=== PATIENT | female | born 1965 | race American Indian/Alaskan Native ===

== ENCOUNTER 2016-11-05 04:40 | Emergency (ER) | payer MEDICAID ==
--- NOTE | 2016-11-05 08:39 | Emergency Department Report ---
ED General Adult HPI - General Chief complaint: Pain General Stated complaint: SEVERE PAIN Time Seen by Provider: 11/05/16 07:57 Source: patient Mode of arrival: Ambulatory Limitations: No Limitations - History of Present Illness Initial comments: This is a 51-year-old female that presents with generalized pain throughout the body that going on for many years. Patient stated has history of lupus and fibromyalgia. She is currently seeing a infectious disease physician. Patient stated the infectious disease physician is out of town and will be back October 20. Patient stated she takes Percocet 5 mg for her pain consistently. But has ran out. Patient pain level is a 10 out of 10. No signs of any distress. Denies any chest pain shortness of breath polyuria dysuria numbness or tingling sensations. Denies any head trauma. Patient does not seem toxic or ill appearance. Patient also stated that she wants a refill for her yeast infection medication because she is currently taking some medication that the infectious disease physician stated may have an impacted in her vaginal area. Patient denies any current symptoms of vaginosis or symptoms of these infection. MD Complaint: generalized pain -: year(s) Radiation: non-radiation Severity scale (0 -10): 10 Quality: burning, aching, crushing, constant Consistency: constant Improves with: other (Percocet 5 mg) Associated Symptoms: denies: confusion, chest pain, cough, diaphoresis, fever/ chills, headaches, loss of appetite, malaise, nausea/vomiting, rash, seizure, shortness of breath, syncope, weakness Treatments Prior to Arrival: none - Related Data Home Medications Medication Instructions Recorded Confirmed Last Taken Lisinopril/Hydrochlorothiazide 1 tab PO QDAY 03/26/13 05/01/14 05/01/14 [Zestoretic 20-12.5 mg] clonazePAM [Clonazepam] 2 mg PO 4XD 05/01/14 05/01/14 05/01/14 Previous Rx's Medication Instructions Recorded Last Taken Type HYDROcodone/APAP 7.5-325 [[place] 1 each PO Q6H #40 tablet 03/01/15 Unknown Rx 7.5/325] HYDROcodone/APAP 10-325 [[place] 1 each PO Q6HR PRN #14 tablet 06/06/16 Unknown Rx 10-325 mg TAB] Prednisone [predniSONE 10 mg 10 mg PO .TAPER #1 tab.ds.pk 06/12/16 Unknown Rx (6-Day Pack, 21 Tabs)] oxyCODONE /ACETAMINOPHEN [Percocet 1 tab PO Q6HR PRN #15 tablet 06/24/16 Unknown Rx 5/325] methylPREDNISolone [Medrol Dose 4 mg PO DAILY #1 tab.ds.pk 07/11/16 Unknown Rx Miguelangel] oxyCODONE /ACETAMINOPHEN [Percocet 1 tab PO Q6HR PRN #16 tablet 07/11/16 Unknown Rx 5/325 mg] oxyCODONE /ACETAMINOPHEN [Percocet 1 tab PO Q6HR PRN 14 Days 11/05/16 Unknown Rx 5/325] Allergies Allergy/AdvReac Type Severity Reaction Status Date / Time ibuprofen [From Motrin] Allergy Rash Verified 03/01/15 12:46 ketorolac tromethamine Allergy Rash Verified 03/01/15 12:46 [From Toradol] NSAIDS (Non-Steroidal Allergy Rash Verified 03/01/15 12:46 Anti-Inflamma Penicillins Allergy Rash Verified 06/06/16 20:55 tramadol HCl [From Ultram] Allergy Rash Verified 03/01/15 12:46 ED Review of Systems ROS: Stated complaint: SEVERE PAIN Other details as noted in HPI Comment: All other systems reviewed and negative Constitutional: denies: chills, fever Eyes: denies: eye pain, eye discharge, vision change ENT: denies: ear pain, throat pain Respiratory: denies: cough, shortness of breath, wheezing Cardiovascular: denies: chest pain, palpitations Endocrine: no symptoms reported Gastrointestinal: denies: abdominal pain, nausea, diarrhea Genitourinary: denies: urgency, dysuria, discharge Musculoskeletal: denies: back pain, joint swelling, arthralgia Skin: denies: rash, lesions Neurological: denies: headache, weakness, paresthesias Psychiatric: denies: anxiety, depression Hematological/Lymphatic: denies: easy bleeding, easy bruising ED Past Medical Hx - Past Medical History Previous Medical History?: Yes Hx Hypertension: Yes Hx Arthritis: Yes Hx Psychiatric Treatment: Yes (anxiety) Additional medical history: back problems / fibromyalgia. LUPUS - Surgical History Past Surgical History?: Yes Hx Appendectomy: No Additional Surgical History: ulcer surgery. - Social History Smoking Status: Never Smoker Substance Use Type: None - Medications Home Medications: Home Medications Medication Instructions Recorded Confirmed Last Taken Type Lisinopril/Hydrochlorothiazide 1 tab PO QDAY 03/26/13 05/01/14 05/01/14 History [Zestoretic 20-12.5 mg] clonazePAM [Clonazepam] 2 mg PO 4XD 05/01/14 05/01/14 05/01/14 History HYDROcodone/APAP 7.5-325 [[place] 1 each PO Q6H #40 tablet 03/01/15 Unknown Rx 7.5/325] HYDROcodone/APAP 10-325 [[place] 1 each PO Q6HR PRN #14 tablet 06/06/16 Unknown Rx 10-325 mg TAB] Prednisone [predniSONE 10 mg 10 mg PO .TAPER #1 tab.ds.pk 06/12/16 Unknown Rx (6-Day Pack, 21 Tabs)] oxyCODONE /ACETAMINOPHEN [Percocet 1 tab PO Q6HR PRN #15 tablet 06/24/16 Unknown Rx 5/325] methylPREDNISolone [Medrol Dose 4 mg PO DAILY #1 tab.ds.pk 07/11/16 Unknown Rx Miguelangel] oxyCODONE /ACETAMINOPHEN [Percocet 1 tab PO Q6HR PRN #16 tablet 07/11/16 Unknown Rx 5/325 mg] oxyCODONE /ACETAMINOPHEN [Percocet 1 tab PO Q6HR PRN 14 Days 11/05/16 Unknown Rx 5/325] ED Physical Exam - General Limitations: No Limitations General appearance: alert, in no apparent distress - Head Head exam: Present: atraumatic, normocephalic - Eye Eye exam: Present: normal appearance - ENT ENT exam: Present: mucous membranes moist - Neck Neck exam: Present: normal inspection - Respiratory Respiratory exam: Present: normal lung sounds bilaterally. Absent: respiratory distress - Cardiovascular Cardiovascular Exam: Present: regular rate, normal rhythm. Absent: systolic murmur, diastolic murmur, rubs, gallop - GI/Abdominal GI/Abdominal exam: Present: soft, normal bowel sounds - Extremities Exam Extremities exam: Present: normal inspection - Back Exam Back exam: Present: normal inspection - Neurological Exam Neurological exam: Present: alert, oriented X3 - Psychiatric Psychiatric exam: Present: normal affect, normal mood - Skin Skin exam: Present: warm, dry, intact, normal color. Absent: rash ED Course Vital Signs 11/05/16 04:44 Temperature 98 F Pulse Rate 88 Respiratory 18 Rate Blood Pressure 156/107 O2 Sat by Pulse 100 Oximetry Patient stated is severely hypertensive at 210/150. 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 Patient stated that this blood pressure is normal for her. ED Medical Decision Making - Medical Decision Making Ed course: This is a 51-year-old female that presents with generalized pain. 1- patient did not seem toxic or ill appearance. No signs and distress noted. 2- she currently states that she takes Percocet 5 mg but ran out for her lupus and fibromyalgia. 3- I prescribed Percocet 5 mg until she sees a infectious disease physician. 4- at the time of discharge the patient denies seem toxic or ill appearance. No signs and distress noted. 5- patient stated has an appointment already with her infectious disease physician October 20. 6- I instructed the patient not to use any heavy machinery while taking prescribed medication. 7- patient stated takes Percocet at home even though has and Ultram allergie. ( rash) Critical care attestation.: If time is entered above; I have spent that time in minutes in the direct care of this critically ill patient, excluding procedure time. ED Disposition Clinical Impression: Generalized pain Disposition: DISCHARGED TO HOME OR SELFCARE Is pt being admited?: No Does the pt Need Aspirin: No Condition: Stable Instructions: Oxycodone/Acetaminophen (By mouth) Additional Instructions: Please follow-up with your primary care doctor in 3-5 days. Please follow-up with the infectious disease physician JOI Do not operate heavy machinery while taking Percocet. Prescriptions: oxyCODONE /ACETAMINOPHEN [Percocet 5/325] 1 tab PO Q6HR PRN 14 Days PRN Reason: Pain Referrals: FRANSICO AGUIAR MD [Primary Care Provider] - 3-5 Days Forms: Accompanied Note
[2016-11-05 09:40] VITALS: BP 148/96
== END 2016-11-05 08:43 | disposition home or self-care (01) ==
LOC: ED 04:40
DX: M79.1 Myalgia (principal); I10 Essential (primary) hypertension; M19.90 Unspecified osteoarthritis, unspecified site; F41.9 Anxiety disorder, unspecified; Z88.0 Allergy status to penicillin; Z88.6 Allergy status to analgesic agent; Z88.8 Allergy status to other drugs, medicaments and biological substances
CPT/HCPCS: 99282

== ENCOUNTER 2016-11-30 02:46 | Emergency (ER) | payer MEDICAID ==
[2016-11-30 03:22] VITALS: BP 161/98
--- NOTE | 2016-11-30 10:49 | Emergency Department Report ---
ED General Adult HPI - General Chief complaint: Pain General Stated complaint: BODY PAIN Time Seen by Provider: 11/30/16 10:29 Source: patient, EMS Mode of arrival: Ambulatory Limitations: No Limitations - History of Present Illness Initial comments: 51-year-old female with history of fibromyalgia And lupus presents with body aches that are triggered by stress. Patient states that she is currently evicted out of her home and cannot get access to her medication. Denies fever, chest pain, headache, shortness of breath - Related Data Home Medications Medication Instructions Recorded Confirmed Last Taken Lisinopril/Hydrochlorothiazide 1 tab PO QDAY 03/26/13 05/01/14 05/01/14 [Zestoretic 20-12.5 mg] clonazePAM [Clonazepam] 2 mg PO 4XD 05/01/14 05/01/14 05/01/14 Previous Rx's Medication Instructions Recorded Last Taken Type HYDROcodone/APAP 7.5-325 [[place] 1 each PO Q6H #40 tablet 03/01/15 Unknown Rx 7.5/325] HYDROcodone/APAP 10-325 [[place] 1 each PO Q6HR PRN #14 tablet 06/06/16 Unknown Rx 10-325 mg TAB] Prednisone [predniSONE 10 mg 10 mg PO .TAPER #1 tab.ds.pk 06/12/16 Unknown Rx (6-Day Pack, 21 Tabs)] oxyCODONE /ACETAMINOPHEN [Percocet 1 tab PO Q6HR PRN #15 tablet 06/24/16 Unknown Rx 5/325] methylPREDNISolone [Medrol Dose 4 mg PO DAILY #1 tab.ds.pk 07/11/16 Unknown Rx Miguelangel] oxyCODONE /ACETAMINOPHEN [Percocet 1 tab PO Q6HR PRN #16 tablet 07/11/16 Unknown Rx 5/325 mg] oxyCODONE /ACETAMINOPHEN [Percocet 1 tab PO Q6HR PRN 14 Days 11/05/16 Unknown Rx 5/325] Oxycodone HCl [Oxaydo] 7.5 mg PO Q8H #10 tablet.orl 11/30/16 Unknown Rx methylPREDNISolone [Medrol] 4 mg PO DAILY #1 tab.ds.pk 11/30/16 Unknown Rx Allergies Allergy/AdvReac Type Severity Reaction Status Date / Time ibuprofen [From Motrin] Allergy Rash Verified 03/01/15 12:46 ketorolac tromethamine Allergy Rash Verified 03/01/15 12:46 [From Toradol] morphine Allergy Rash Verified 11/30/16 03:23 NSAIDS (Non-Steroidal Allergy Rash Verified 03/01/15 12:46 Anti-Inflamma Penicillins Allergy Rash Verified 06/06/16 20:55 tramadol HCl [From Ultram] Allergy Rash Verified 03/01/15 12:46 ED Review of Systems ROS: Stated complaint: BODY PAIN Other details as noted in HPI Constitutional: denies: chills, fever Eyes: denies: eye pain, eye discharge, vision change ENT: denies: ear pain, throat pain Respiratory: denies: cough, shortness of breath, wheezing Cardiovascular: denies: chest pain, palpitations Endocrine: no symptoms reported Gastrointestinal: denies: abdominal pain, nausea, diarrhea Genitourinary: denies: urgency, dysuria, discharge Musculoskeletal: denies: back pain, joint swelling, arthralgia Skin: denies: rash, lesions Neurological: denies: headache, weakness, paresthesias Psychiatric: denies: anxiety, depression Hematological/Lymphatic: denies: easy bleeding, easy bruising ED Past Medical Hx - Past Medical History Previous Medical History?: Yes Hx Hypertension: Yes Hx Arthritis: Yes Hx Psychiatric Treatment: Yes (anxiety) Additional medical history: back problems / fibromyalgia. LUPUS. pud - Surgical History Past Surgical History?: Yes Hx Appendectomy: No Additional Surgical History: c section x1 - Social History Smoking Status: Never Smoker Substance Use Type: None - Medications Home Medications: Home Medications Medication Instructions Recorded Confirmed Last Taken Type Lisinopril/Hydrochlorothiazide 1 tab PO QDAY 03/26/13 05/01/14 05/01/14 History [Zestoretic 20-12.5 mg] clonazePAM [Clonazepam] 2 mg PO 4XD 05/01/14 05/01/14 05/01/14 History HYDROcodone/APAP 7.5-325 [[place] 1 each PO Q6H #40 tablet 03/01/15 Unknown Rx 7.5/325] HYDROcodone/APAP 10-325 [[place] 1 each PO Q6HR PRN #14 tablet 06/06/16 Unknown Rx 10-325 mg TAB] Prednisone [predniSONE 10 mg 10 mg PO .TAPER #1 tab.ds.pk 06/12/16 Unknown Rx (6-Day Pack, 21 Tabs)] oxyCODONE /ACETAMINOPHEN [Percocet 1 tab PO Q6HR PRN #15 tablet 06/24/16 Unknown Rx 5/325] methylPREDNISolone [Medrol Dose 4 mg PO DAILY #1 tab.ds.pk 07/11/16 Unknown Rx Miguelangel] oxyCODONE /ACETAMINOPHEN [Percocet 1 tab PO Q6HR PRN #16 tablet 07/11/16 Unknown Rx 5/325 mg] oxyCODONE /ACETAMINOPHEN [Percocet 1 tab PO Q6HR PRN 14 Days 11/05/16 Unknown Rx 5/325] Oxycodone HCl [Oxaydo] 7.5 mg PO Q8H #10 tablet.orl 11/30/16 Unknown Rx methylPREDNISolone [Medrol] 4 mg PO DAILY #1 tab.ds.pk 11/30/16 Unknown Rx ED Physical Exam - General Limitations: No Limitations General appearance: alert, in no apparent distress - Head Head exam: Present: atraumatic, normocephalic - Eye Eye exam: Present: normal appearance - ENT ENT exam: Present: mucous membranes moist - Neck Neck exam: Present: normal inspection - Respiratory Respiratory exam: Present: normal lung sounds bilaterally. Absent: respiratory distress - Cardiovascular Cardiovascular Exam: Present: regular rate, normal rhythm. Absent: systolic murmur, diastolic murmur, rubs, gallop - GI/Abdominal GI/Abdominal exam: Present: soft, normal bowel sounds - Extremities Exam Extremities exam: Present: normal inspection - Back Exam Back exam: Present: normal inspection - Neurological Exam Neurological exam: Present: alert, oriented X3 - Psychiatric Psychiatric exam: Present: normal affect, normal mood - Skin Skin exam: Present: warm, dry, intact, normal color. Absent: rash ED Course Vital Signs 11/30/16 03:17 Temperature 98.8 F Pulse Rate 81 Respiratory 18 Rate Blood Pressure 161/98 O2 Sat by Pulse 100 Oximetry ED Medical Decision Making - Lab Data Vital Signs 11/30/16 03:17 Temperature 98.8 F Pulse Rate 81 Respiratory 18 Rate Blood Pressure 161/98 O2 Sat by Pulse 100 Oximetry - Medical Decision Making patient resting comfortably at this time. will refill medication. Critical care attestation.: If time is entered above; I have spent that time in minutes in the direct care of this critically ill patient, excluding procedure time. ED Disposition Clinical Impression: Fibromyalgia muscle pain, Lupus Disposition: DISCHARGED TO HOME OR SELFCARE Is pt being admited?: No Does the pt Need Aspirin: No Condition: Good Instructions: Opioid Pain Management (ED) Prescriptions: methylPREDNISolone [Medrol] 4 mg PO DAILY #1 tab.ds.pk Oxycodone HCl [Oxaydo] 7.5 mg PO Q8H #10 tablet.orl Referrals: PRIMARY CARE, [Primary Care Provider] - 3-5 Days Time of Disposition: 10:49
== END 2016-11-30 11:34 | disposition home or self-care (01) ==
LOC: ED 02:46
DX: M79.1 Myalgia (principal); L93.0 Discoid lupus erythematosus; I10 Essential (primary) hypertension; F41.9 Anxiety disorder, unspecified
CPT/HCPCS: 96372; 99283; J2930

== ENCOUNTER 2017-01-19 03:51 | Emergency (ER) | payer MEDICAID ==
[2017-01-19 04:36] VITALS: BP 172/107
[2017-01-19 05:29] LABS: Hemoglobin 10.1 gm/dl (10.1-14.3); Mean Corpuscular HGB Conc 32 % (30-34); Mean Corpuscular Volume 74 fl (79-97); Platelet Count 398 K/mm3 (140-440); Red Cell Distribution Width 15.3 % (13.2-15.2); White Blood Count 7.9 K/mm3 (4.5-11.0)
[2017-01-19 05:38] LABS: Mean Corpuscular Hemoglobin 24 pg (28-32)
[2017-01-19 05:55] LABS: Blood Urea Nitrogen 27 mg/dL (7-17); Calcium 9.6 mg/dL (8.4-10.2); Carbon Dioxide 25 mmol/L (22-30); Glucose 133 mg/dL (65-100)
[2017-01-19 05:56] LABS: Anion Gap 21 mmol/L; Chloride 100.9 mmol/L (98-107); Potassium 3.8 mmol/L (3.6-5.0); Sodium 143 mmol/L (137-145)
[2017-01-19 06:23] LABS: Bilirubin,Urine NEG (Negative); Blood,Urine NEG (Negative); Ketones,Urine NEG (Negative); Leukocyte Esterase,Urine NEG (Negative); Mucus,Urine FEW /HPF; Nitrite,Urine NEG (Negative); Urobilinogen,Urine < 2.0 mg/dL (<2.0)
[2017-01-19] MEDS ORDERED: DILAUDID IM ONE (07:38)
--- NOTE | 2017-01-19 07:48 | Emergency Department Report ---
ED General Adult HPI - General Chief complaint: Pain General Stated complaint: BODY PAIN Time Seen by Provider: 01/19/17 07:18 Source: patient, EMS Mode of arrival: Wheelchair Limitations: No Limitations - History of Present Illness -: Gradual Location: head, face, chest, back, abdomen, upper extremity, lower extremity Radiation: non-radiation Severity scale (0 -10): 2 Quality: aching, crushing, sharp Consistency: constant Improves with: none Worsens with: none Associated Symptoms: denies: confusion, chest pain, cough, diaphoresis, fever/ chills, headaches, loss of appetite, malaise, nausea/vomiting, rash, seizure, shortness of breath, syncope Treatments Prior to Arrival: none - Related Data Home Medications Medication Instructions Recorded Confirmed Last Taken Lisinopril/Hydrochlorothiazide 1 tab PO QDAY 03/26/13 05/01/14 05/01/14 [Zestoretic 20-12.5 mg] clonazePAM [Clonazepam] 2 mg PO 4XD 05/01/14 05/01/14 05/01/14 Previous Rx's Medication Instructions Recorded Last Taken Type HYDROcodone/APAP 7.5-325 [[place] 1 each PO Q6H #40 tablet 03/01/15 Unknown Rx 7.5/325] HYDROcodone/APAP 10-325 [[place] 1 each PO Q6HR PRN #14 tablet 06/06/16 Unknown Rx 10-325 mg TAB] Prednisone [predniSONE 10 mg 10 mg PO .TAPER #1 tab.ds.pk 06/12/16 Unknown Rx (6-Day Pack, 21 Tabs)] methylPREDNISolone [Medrol Dose 4 mg PO DAILY #1 tab.ds.pk 07/11/16 Unknown Rx Miguelangel] oxyCODONE /ACETAMINOPHEN [Percocet 1 tab PO Q6HR PRN #16 tablet 07/11/16 Unknown Rx 5/325 mg] oxyCODONE /ACETAMINOPHEN [Percocet 1 tab PO Q6HR PRN 14 Days 11/05/16 Unknown Rx 5/325] Oxycodone HCl [Oxaydo] 7.5 mg PO Q8H #10 tablet.orl 11/30/16 Unknown Rx Oxycodone HCl/Acetaminophen 1 each PO Q6HR PRN #10 tablet 11/30/16 Unknown Rx [Percocet 7.5/325 mg] methylPREDNISolone [Medrol] 4 mg PO DAILY #1 tab.ds.pk 11/30/16 Unknown Rx oxyCODONE /ACETAMINOPHEN [Percocet 1 tab PO BID PRN #12 tablet 01/19/17 Unknown Rx 5/325 mg] Allergies Allergy/AdvReac Type Severity Reaction Status Date / Time ibuprofen [From Motrin] Allergy Rash Verified 03/01/15 12:46 ketorolac tromethamine Allergy Rash Verified 03/01/15 12:46 [From Toradol] morphine Allergy Rash Verified 11/30/16 03:23 NSAIDS (Non-Steroidal Allergy Rash Verified 03/01/15 12:46 Anti-Inflamma Penicillins Allergy Rash Verified 06/06/16 20:55 tramadol HCl [From Ultram] Allergy Rash Verified 03/01/15 12:46 ED Review of Systems ROS: Stated complaint: BODY PAIN Other details as noted in HPI Comment: All other systems reviewed and negative ED Past Medical Hx - Past Medical History Previous Medical History?: Yes Hx Hypertension: Yes Hx Arthritis: Yes Hx Psychiatric Treatment: Yes (anxiety) Additional medical history: back problems / fibromyalgia. LUPUS. pud - Surgical History Hx Appendectomy: No Additional Surgical History: c section x1 - Social History Smoking Status: Never Smoker - Medications Home Medications: Home Medications Medication Instructions Recorded Confirmed Last Taken Type Lisinopril/Hydrochlorothiazide 1 tab PO QDAY 03/26/13 05/01/14 05/01/14 History [Zestoretic 20-12.5 mg] clonazePAM [Clonazepam] 2 mg PO 4XD 05/01/14 05/01/14 05/01/14 History HYDROcodone/APAP 7.5-325 [[place] 1 each PO Q6H #40 tablet 03/01/15 Unknown Rx 7.5/325] HYDROcodone/APAP 10-325 [[place] 1 each PO Q6HR PRN #14 tablet 06/06/16 Unknown Rx 10-325 mg TAB] Prednisone [predniSONE 10 mg 10 mg PO .TAPER #1 tab.ds.pk 06/12/16 Unknown Rx (6-Day Pack, 21 Tabs)] methylPREDNISolone [Medrol Dose 4 mg PO DAILY #1 tab.ds.pk 07/11/16 Unknown Rx Miguelangel] oxyCODONE /ACETAMINOPHEN [Percocet 1 tab PO Q6HR PRN #16 tablet 07/11/16 Unknown Rx 5/325 mg] oxyCODONE /ACETAMINOPHEN [Percocet 1 tab PO Q6HR PRN 14 Days 11/05/16 Unknown Rx 5/325] Oxycodone HCl [Oxaydo] 7.5 mg PO Q8H #10 tablet.orl 11/30/16 Unknown Rx Oxycodone HCl/Acetaminophen 1 each PO Q6HR PRN #10 tablet 11/30/16 Unknown Rx [Percocet 7.5/325 mg] methylPREDNISolone [Medrol] 4 mg PO DAILY #1 tab.ds.pk 11/30/16 Unknown Rx oxyCODONE /ACETAMINOPHEN [Percocet 1 tab PO BID PRN #12 tablet 01/19/17 Unknown Rx 5/325 mg] ED Physical Exam - General Limitations: No Limitations General appearance: alert, in distress (in pain) - Head Head exam: Present: atraumatic, normocephalic - Eye Eye exam: Present: normal appearance - ENT ENT exam: Present: normal exam, normal orophraynx, mucous membranes moist - Neck Neck exam: Present: normal inspection - Respiratory Respiratory exam: Present: normal lung sounds bilaterally. Absent: respiratory distress - Cardiovascular Cardiovascular Exam: Present: regular rate, normal rhythm. Absent: systolic murmur, diastolic murmur, rubs, gallop - GI/Abdominal GI/Abdominal exam: Present: soft, normal bowel sounds - Extremities Exam Extremities exam: Present: normal inspection - Back Exam Back exam: Present: normal inspection - Neurological Exam Neurological exam: Present: alert, oriented X3 - Psychiatric Psychiatric exam: Present: normal affect, normal mood - Skin Skin exam: Present: warm, dry, intact, normal color. Absent: rash ED Course Vital Signs 01/19/17 04:28 Temperature 97.8 F Pulse Rate 77 Respiratory 20 Rate Blood Pressure 172/107 O2 Sat by Pulse 100 Oximetry ED Medical Decision Making - Lab Data Result diagrams: 01/19/17 04:57 01/19/17 04:57 - Medical Decision Making patient doing well, she has an appointment with pain specialist next week, told her i could only give her 12 pills with no refill, she understands and will follow up Critical care attestation.: If time is entered above; I have spent that time in minutes in the direct care of this critically ill patient, excluding procedure time. ED Disposition Clinical Impression: Lupus Disposition: DC-01 TO HOME OR SELFCARE Is pt being admited?: No Does the pt Need Aspirin: No Condition: Good Prescriptions: oxyCODONE /ACETAMINOPHEN [Percocet 5/325 mg] 1 tab PO BID PRN #12 tablet PRN Reason: Pain Referrals: PRIMARY CARE, [Primary Care Provider] - 3-5 Days Time of Disposition: 07:48
== END 2017-01-19 08:29 | disposition home or self-care (01) ==
LOC: ED 03:51
DX: M32.9 Systemic lupus erythematosus, unspecified (principal); I10 Essential (primary) hypertension; M19.90 Unspecified osteoarthritis, unspecified site; F41.9 Anxiety disorder, unspecified; Z88.6 Allergy status to analgesic agent; Z88.0 Allergy status to penicillin; Z88.8 Allergy status to other drugs, medicaments and biological substances
CPT/HCPCS: 36415; 80048; 81001; 85027; 96372; 99284; J1170

== ENCOUNTER 2017-02-03 05:30 | Emergency (ER) | payer MEDICAID ==
[2017-02-03 05:43] VITALS: BP 138/102
[2017-02-03 06:19] LABS: Bacteria,Urine 1+ /HPF (Negative); Bilirubin,Urine NEG (Negative); Blood,Urine NEG (Negative); Ketones,Urine NEG (Negative); Leukocyte Esterase,Urine NEG (Negative); Mucus,Urine FEW /HPF; Nitrite,Urine NEG (Negative); Protein,Urine <15 mg/dL mg/dL (Negative); Urobilinogen,Urine < 2.0 mg/dL (<2.0)
[2017-02-03 06:23] LABS: Basophils % (Auto) 1.2 % (0.0-1.8); Eosinophils % (Auto) 1.1 % (0.0-4.3); Hematocrit 30.8 % (30.3-42.9); Hemoglobin 9.9 gm/dl (10.1-14.3); Mean Corpuscular HGB Conc 32 % (30-34); Mean Corpuscular Volume 73 fl (79-97); Platelet Count 357 K/mm3 (140-440); Red Blood Count 4.21 M/mm3 (3.65-5.03); Red Cell Distribution Width 14.6 % (13.2-15.2); White Blood Count 7.6 K/mm3 (4.5-11.0)
[2017-02-03 06:25] LABS: Mean Corpuscular Hemoglobin 23 pg (28-32)
[2017-02-03 06:35] LABS: Alanine Aminotransferase 9 units/L (7-56); Albumin 4.3 g/dL (3.9-5); Albumin/Globulin Ratio 1.2 %; Alkaline Phosphatase 90 units/L (35-129); Anion Gap 19 mmol/L; BUN/Creatinine Ratio 27.77; Bilirubin,Total < 0.20 mg/dL (0.1-1.2); Blood Urea Nitrogen 25 mg/dL (7-17); Calcium 9.5 mg/dL (8.4-10.2); Carbon Dioxide 25 mmol/L (22-30); Chloride 101.5 mmol/L (98-107); Glucose 135 mg/dL (65-100); Lipase 22 units/L (13-60); Potassium 3.7 mmol/L (3.6-5.0); Sodium 142 mmol/L (137-145)
[2017-02-03] MEDS ORDERED: TORADOL IM ONE (07:58)
[2017-02-03] MEDS ORDERED: TYLENOL PO ONE (08:01)
--- NOTE | 2017-02-03 08:07 | Emergency Department Report ---
ED General Adult HPI - General Chief complaint: Pain General Stated complaint: LUPUS Time Seen by Provider: 02/03/17 07:44 Source: patient, EMS Mode of arrival: Ambulatory Limitations: No Limitations - History of Present Illness Initial comments: This is a 52-year-old female that presents that presents to ED c/o of general body aches. Patient stated she has hx of lupus and fibromyalgia and has these flare ups from time to time. Patient stated is being seen by Dr. Tellez but stated she can not have an appointment until next week. Patient stated the only medication that helps her flare ups is Percocet 5mg. Patient denies any chest pain, shortness of breathe, headache, fever, chills, dysuria, polyuria, abdominal pain, stiff neck, numbness, or tingling. MD Complaint: Lupus flare up -: Gradual, days(s) (2) Location: upper extremity, lower extremity Radiation: non-radiation Severity scale (0 -10): 3 Quality: aching Consistency: constant Improves with: medication (Percocet) Worsens with: none Associated Symptoms: denies other symptoms. denies: confusion, chest pain, cough, diaphoresis, fever/chills, headaches, loss of appetite, malaise, nausea/ vomiting, rash, seizure, shortness of breath, syncope, weakness Treatments Prior to Arrival: none - Related Data Home Medications Medication Instructions Recorded Confirmed Last Taken Lisinopril/Hydrochlorothiazide 1 tab PO QDAY 03/26/13 05/01/14 05/01/14 [Zestoretic 20-12.5 mg] clonazePAM [Clonazepam] 2 mg PO 4XD 05/01/14 05/01/14 05/01/14 Previous Rx's Medication Instructions Recorded Last Taken Type HYDROcodone/APAP 7.5-325 [[place] 1 each PO Q6H #40 tablet 03/01/15 Unknown Rx 7.5/325] HYDROcodone/APAP 10-325 [[place] 1 each PO Q6HR PRN #14 tablet 06/06/16 Unknown Rx 10-325 mg TAB] Prednisone [predniSONE 10 mg 10 mg PO .TAPER #1 tab.ds.pk 06/12/16 Unknown Rx (6-Day Pack, 21 Tabs)] methylPREDNISolone [Medrol Dose 4 mg PO DAILY #1 tab.ds.pk 07/11/16 Unknown Rx Miguelangel] oxyCODONE /ACETAMINOPHEN [Percocet 1 tab PO Q6HR PRN #16 tablet 07/11/16 Unknown Rx 5/325 mg] oxyCODONE /ACETAMINOPHEN [Percocet 1 tab PO Q6HR PRN 14 Days 11/05/16 Unknown Rx 5/325] Oxycodone HCl [Oxaydo] 7.5 mg PO Q8H #10 tablet.orl 11/30/16 Unknown Rx Oxycodone HCl/Acetaminophen 1 each PO Q6HR PRN #10 tablet 11/30/16 Unknown Rx [Percocet 7.5/325 mg] methylPREDNISolone [Medrol] 4 mg PO DAILY #1 tab.ds.pk 11/30/16 Unknown Rx oxyCODONE /ACETAMINOPHEN [Percocet 1 tab PO BID PRN #12 tablet 01/19/17 Unknown Rx 5/325 mg] Acetaminophen [Acetaminophen TAB] 650 mg PO Q6HR PRN #20 tablet 02/03/17 Unknown Rx oxyCODONE /ACETAMINOPHEN [Percocet 1 tab PO Q12H #8 tablet 02/03/17 Unknown Rx 5/325] Allergies Allergy/AdvReac Type Severity Reaction Status Date / Time ibuprofen [From Motrin] Allergy Rash Verified 03/01/15 12:46 ketorolac tromethamine Allergy Rash Verified 03/01/15 12:46 [From Toradol] morphine Allergy Rash Verified 11/30/16 03:23 NSAIDS (Non-Steroidal Allergy Rash Verified 03/01/15 12:46 Anti-Inflamma Penicillins Allergy Rash Verified 06/06/16 20:55 tramadol HCl [From Ultram] Allergy Rash Verified 03/01/15 12:46 ED Review of Systems ROS: Stated complaint: LUPUS Other details as noted in HPI Constitutional: denies: chills, fever Eyes: denies: eye pain, eye discharge, vision change ENT: denies: ear pain, throat pain Respiratory: denies: cough, shortness of breath, wheezing Cardiovascular: denies: chest pain, palpitations Endocrine: no symptoms reported Gastrointestinal: denies: abdominal pain, nausea, diarrhea Genitourinary: denies: urgency, dysuria, discharge Musculoskeletal: denies: back pain, joint swelling, arthralgia Skin: denies: rash, lesions Neurological: denies: headache, weakness, paresthesias Psychiatric: denies: anxiety, depression Hematological/Lymphatic: denies: easy bleeding, easy bruising ED Past Medical Hx - Past Medical History Previous Medical History?: Yes Hx Hypertension: Yes Hx Arthritis: Yes Hx Psychiatric Treatment: Yes (anxiety) Additional medical history: back problems / fibromyalgia. LUPUS. pud - Surgical History Past Surgical History?: Yes Hx Appendectomy: No Additional Surgical History: c section x1 - Social History Smoking Status: Never Smoker Substance Use Type: None - Medications Home Medications: Home Medications Medication Instructions Recorded Confirmed Last Taken Type Lisinopril/Hydrochlorothiazide 1 tab PO QDAY 03/26/13 05/01/14 05/01/14 History [Zestoretic 20-12.5 mg] clonazePAM [Clonazepam] 2 mg PO 4XD 05/01/14 05/01/14 05/01/14 History HYDROcodone/APAP 7.5-325 [[place] 1 each PO Q6H #40 tablet 03/01/15 Unknown Rx 7.5/325] HYDROcodone/APAP 10-325 [[place] 1 each PO Q6HR PRN #14 tablet 06/06/16 Unknown Rx 10-325 mg TAB] Prednisone [predniSONE 10 mg 10 mg PO .TAPER #1 tab.ds.pk 06/12/16 Unknown Rx (6-Day Pack, 21 Tabs)] methylPREDNISolone [Medrol Dose 4 mg PO DAILY #1 tab.ds.pk 07/11/16 Unknown Rx Miguelangel] oxyCODONE /ACETAMINOPHEN [Percocet 1 tab PO Q6HR PRN #16 tablet 07/11/16 Unknown Rx 5/325 mg] oxyCODONE /ACETAMINOPHEN [Percocet 1 tab PO Q6HR PRN 14 Days 11/05/16 Unknown Rx 5/325] Oxycodone HCl [Oxaydo] 7.5 mg PO Q8H #10 tablet.orl 11/30/16 Unknown Rx Oxycodone HCl/Acetaminophen 1 each PO Q6HR PRN #10 tablet 11/30/16 Unknown Rx [Percocet 7.5/325 mg] methylPREDNISolone [Medrol] 4 mg PO DAILY #1 tab.ds.pk 11/30/16 Unknown Rx oxyCODONE /ACETAMINOPHEN [Percocet 1 tab PO BID PRN #12 tablet 01/19/17 Unknown Rx 5/325 mg] Acetaminophen [Acetaminophen TAB] 650 mg PO Q6HR PRN #20 tablet 02/03/17 Unknown Rx oxyCODONE /ACETAMINOPHEN [Percocet 1 tab PO Q12H #8 tablet 02/03/17 Unknown Rx 5/325] ED Physical Exam - General Limitations: No Limitations General appearance: alert, in no apparent distress - Head Head exam: Present: atraumatic, normocephalic, normal inspection - Eye Eye exam: Present: normal appearance, PERRL, EOMI. Absent: scleral icterus, conjunctival injection, nystagmus, periorbital swelling, periorbital tenderness Pupils: Present: normal accommodation - ENT ENT exam: Present: normal exam, normal orophraynx, mucous membranes moist, TM's normal bilaterally, normal external ear exam - Neck Neck exam: Present: normal inspection, full ROM. Absent: tenderness, meningismus, lymphadenopathy, thyromegaly - Respiratory Respiratory exam: Present: normal lung sounds bilaterally. Absent: respiratory distress, wheezes, rales, rhonchi, stridor, chest wall tenderness, accessory muscle use, decreased breath sounds, prolonged expiratory - Cardiovascular Cardiovascular Exam: Present: regular rate, normal rhythm, normal heart sounds. Absent: bradycardia, tachycardia, irregular rhythm, systolic murmur, diastolic murmur, rubs, gallop - GI/Abdominal GI/Abdominal exam: Present: soft, normal bowel sounds. Absent: distended, tenderness, guarding, rebound, rigid, diminished bowel sounds - Rectal Rectal exam: Present: deferred (as per patient) - Extremities Exam Extremities exam: Present: normal inspection, full ROM, normal capillary refill. Absent: tenderness, pedal edema, joint swelling, calf tenderness - Back Exam Back exam: Present: normal inspection, full ROM. Absent: tenderness, CVA tenderness (R), CVA tenderness (L), muscle spasm, paraspinal tenderness, vertebral tenderness, rash noted - Neurological Exam Neurological exam: Present: alert, oriented X3, CN II-XII intact, normal gait, reflexes normal - Expanded Neurological Exam Expanded Patient oriented to: Present: person, place, time Speech: Present: fluid speech Cranial nerves: EOM's Intact: Normal, Gag Reflex: Normal, Tongue Deviation: Normal, Nystagmus: Normal, Facial Sensation: Normal, Facial Palsy with Forehead Movement: Normal, Facial Palsy without Forehead Movement: Normal Cerebellar function: Finger to Nose: Normal, Heel to Anaya: Normal, Romberg: Normal Upper motor neuron: Tam Neglect: Normal, Pronator Drift: Normal, Babinski Sign : Normal, Sensory Extinction: Normal Sensory exam: Upper Extremity Light Touch: Normal, Upper Extremity Pin Prick: Normal, Upper Extremity Temperature: Normal, UE 2 Point Discrimination: Normal, Lower Extremity Light Touch: Normal, Lower Extremity Pin Prick: Normal, Lower Extremity Temperature: Normal, LE 2 Point Discrimination: Normal Motor strength exam: RUE: 5, LUE: 5, RLE: 5, LLE: 5 DTR: bicep (R): 2+, bicep (L): 2+, tricep (R): 2+, tricep (L): 2+, knee (R): 2+ , knee (L): 2+, ankle (R): 2+, ankle (L): 2+ Best Eye Response (Bobby): (4) open spontaneously Best Motor Response (Bobby): (6) obeys commands Best Verbal Response (Bobby): (5) oriented Bobby Total: 15 - Psychiatric Psychiatric exam: Present: normal affect, normal mood - Skin Skin exam: Present: warm, dry, intact, normal color. Absent: rash ED Course Vital Signs 02/03/17 05:33 Temperature 98.2 F Pulse Rate 83 Respiratory 18 Rate Blood Pressure 138/102 [Right] O2 Sat by Pulse 99 Oximetry - Reevaluation(s) Reevaluation #1: 02/03/17 08:15 Patient is able to speak in full sentences with no signs of distress noteed. ED Medical Decision Making - Lab Data Result diagrams: 02/03/17 05:59 02/03/17 05:59 - Medical Decision Making Ed course: This is a 52-year-old female that presents with lupus flare 1- patient was examined myself. CBC, BMP, CK, and UA has been obtained with normal findings. I splinted the patient the importance of follow-up with his primary care doctor in 3-5 days and I will refill the patient's medication of Percocet. I also referred patient to pain management. I instructed the patient not to operate heavy machinery while taking Percocet due to drowsiness. 2- at time time of discharge, the patient does not seem toxic or ill in appearance. No acute signs of distress noted. Patient agrees to discharge treatment plan of care. No further questions noted by the patient. 3- Patient received 40 mg Solu-Medrol IM in the ED. Patient also received acetaminophen 650 mg in ED. Patient was prescribed acetaminophen 650 at discharge and I instruct the patient to first take acetaminophen if no relief after the take Percocet as prescribed. Critical care attestation.: If time is entered above; I have spent that time in minutes in the direct care of this critically ill patient, excluding procedure time. ED Disposition Clinical Impression: Lupus Qualifiers: Systemic lupus erythematosus type: unspecified Systemic lupus erythematosus organ involvement: unspecified Qualified Code(s): M32.9 - Systemic lupus erythematosus, unspecified Disposition: DC- TO HOME OR SELFCARE Is pt being admited?: No Does the pt Need Aspirin: No Condition: Stable Instructions: Oxycodone/Acetaminophen (By mouth) Additional Instructions: Take acetaminophen as prescribed. If no relief he may take Percocet as prescribed. Do not operate heavy machinery while taking Percocet 3-5 days and follow up with a pain management doctor that had been referred to. Prescriptions: Acetaminophen [Acetaminophen TAB] 650 mg PO Q6HR PRN #20 tablet PRN Reason: Pain oxyCODONE /ACETAMINOPHEN [Percocet 5/325] 1 tab PO Q12H #8 tablet Referrals: PRIMARY CAREMD [Primary Care Provider] - 3-5 Days REID EUGENE MD, PHD [Staff Physician] - 3-5 Days [facility] [Provider Group] - 3-5 Days [facility] [Provider Group] - 3-5 Days [facility] [Outside] - 3-5 Days [facility] [Outside] - 3-5 Days Forms: Work/School Release Form(ED)
== END 2017-02-03 08:46 | disposition home or self-care (01) ==
LOC: ED 05:30
DX: M32.9 Systemic lupus erythematosus, unspecified (principal); I10 Essential (primary) hypertension; M19.90 Unspecified osteoarthritis, unspecified site; F41.9 Anxiety disorder, unspecified; Z88.6 Allergy status to analgesic agent; Z88.0 Allergy status to penicillin; Z88.8 Allergy status to other drugs, medicaments and biological substances
CPT/HCPCS: 36415; 80053; 81001; 82550; 83690; 85025; 96372; 99284; J2920

== ENCOUNTER 2017-03-02 01:51 | Emergency (ER) | payer MEDICAID ==
[2017-03-02 02:13] VITALS: BP 131/85
[2017-03-02] MEDS ORDERED: TRIPLE ANTIBIOTIC TP ONE (05:38)
--- NOTE | 2017-03-02 05:42 | Emergency Department Report ---
HPI - General Chief Complaint: Pain General Time Seen by Provider: 03/02/17 05:20 - HPI HPI: She is a 52-year-old female with a history of lupus for 7 years who presents to ED complaining of lupus flareup since couple days. 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 Patient states generalized joint pain in the 1 lesion on her arm. She denies fevers/chills/nausea/vomiting/abdominal pain/chest pain/shortness of breath. ED Past Medical Hx - Past Medical History Previous Medical History?: Yes Hx Hypertension: Yes Hx Arthritis: Yes Hx Psychiatric Treatment: Yes (anxiety) Additional medical history: back problems / fibromyalgia. LUPUS. pud - Surgical History Past Surgical History?: Yes Hx Appendectomy: No Additional Surgical History: c section x1 - Social History Smoking Status: Never Smoker Substance Use Type: None - Medications Home Medications: Home Medications Medication Instructions Recorded Confirmed Last Taken Type Lisinopril/Hydrochlorothiazide 1 tab PO QDAY 03/26/13 05/01/14 05/01/14 History [Zestoretic 20-12.5 mg] clonazePAM [Clonazepam] 2 mg PO 4XD 05/01/14 05/01/14 05/01/14 History HYDROcodone/APAP 7.5-325 [[place] 1 each PO Q6H #40 tablet 03/01/15 Unknown Rx 7.5/325] HYDROcodone/APAP 10-325 [[place] 1 each PO Q6HR PRN #14 tablet 06/06/16 Unknown Rx 10-325 mg TAB] Prednisone [predniSONE 10 mg 10 mg PO .TAPER #1 tab.ds.pk 06/12/16 Unknown Rx (6-Day Pack, 21 Tabs)] methylPREDNISolone [Medrol Dose 4 mg PO DAILY #1 tab.ds.pk 07/11/16 Unknown Rx Miguelangel] oxyCODONE /ACETAMINOPHEN [Percocet 1 tab PO Q6HR PRN #16 tablet 07/11/16 Unknown Rx 5/325 mg] oxyCODONE /ACETAMINOPHEN [Percocet 1 tab PO Q6HR PRN 14 Days 11/05/16 Unknown Rx 5/325] oxyCODONE /ACETAMINOPHEN [Percocet 1 tab PO BID PRN #12 tablet 01/19/17 Unknown Rx 5/325 mg] oxyCODONE /ACETAMINOPHEN [Percocet 1 tab PO Q12H #8 tablet 02/03/17 Unknown Rx 5/325] Acetaminophen [Acetaminophen TAB] 650 mg PO Q6HR PRN #40 tablet 03/02/17 Unknown Rx Neomycn/Baci Zn/Pmyx Bs/Pramox 1 applic TP TID #1 tube 03/02/17 Unknown Rx [Triple Antibioti-Pain Rlf Oint] Oxycodone HCl/Acetaminophen 1 each PO Q6HR PRN #12 tablet 03/02/17 Unknown Rx [Percocet 7.5/325 mg] methylPREDNISolone [Medrol Dose 4 mg PO DAILY #1 tab.ds.pk 03/02/17 Unknown Rx Miguelangel] ED Review of Systems ROS: Stated complaint: LUPUS FLARE UP Other details as noted in HPI Constitutional: denies: chills, fever Eyes: denies: eye pain, eye discharge, vision change ENT: denies: ear pain, throat pain Respiratory: denies: cough, shortness of breath, wheezing Cardiovascular: denies: chest pain, palpitations Endocrine: no symptoms reported Gastrointestinal: denies: abdominal pain, nausea, diarrhea Genitourinary: denies: urgency, dysuria, discharge Musculoskeletal: denies: back pain, joint swelling, arthralgia Skin: denies: rash, lesions Neurological: denies: headache, weakness, paresthesias Psychiatric: denies: anxiety, depression Hematological/Lymphatic: denies: easy bleeding, easy bruising Physical Exam - Physical Exam Vital Signs: Vital Signs 03/02/17 02:07 Temperature 98.3 F Pulse Rate 81 Respiratory 18 Rate Blood Pressure 131/85 O2 Sat by Pulse 98 Oximetry Physical Exam: GENERAL: Alert and oriented x3, no apparent distress, Normal Gait, atraumatic. HEAD: Head is normocephalic and a-traumatic. MOUTH:Mouth is well hydrated and without lesions. Tonsils nonerythematous or swollen, Uvula midline, Tongue not elevated. Mucous membranes are moist. Posterior pharynx clear, no exudate or lesions. Patent airways. NECK: Supple. Non edematous, No lymphadenopathy or thyromegaly. No C-spine tenderness LUNGS: Symetrical with respiration, No wheezing, no rales or crackles, CTAB. HEART: S1, S2 present, regular rate and rhythm without murmur, no rubs, no gallops. Non tender to palpation ABDOMEN: No organomegaly was noted,Positive bowel sounds, soft, and non- distended. . Nontender to palpation on all Quadrants, NO CVA tenderness. EXTREMITIES/MUSCULOSKELETAL: No cyanosis, clubbing, rash, lesions or edema. Full ROM bilaterally. UE/LE Pulses 2+ bilaterally. LE and UE 5+ strength bilaterally, NEUROLOGIC: The patient is cooperative with no focal neurologic deficits. Cranial nerves II through XII are grossly intact. Normal speech. SKIN: Warm and dry, one 2-3cm, moderately healed abrasion type lesions, No ulceration or induration present. ED Course Vital Signs 03/02/17 02:07 Temperature 98.3 F Pulse Rate 81 Respiratory 18 Rate Blood Pressure 131/85 O2 Sat by Pulse 98 Oximetry ED Medical Decision Making - Medical Decision Making 52-year-old female presents with lupus flareup ED course: Patient received Solu Medrol in the ED. Patient's lesion was dressed with triple antibiotic sterilely draped Patient is unable to get some pain medication in the ER because she drove herself to the ER and does not have a company driver Discussed home medication for pain. Discussed follow-up with nail technician and primary care physician upon return Patient is in mild pain but in no acute or respiratory distress Vital signs are normal Critical care attestation.: If time is entered above; I have spent that time in minutes in the direct care of this critically ill patient, excluding procedure time. ED Disposition Clinical Impression: Lupus (systemic lupus erythematosus) Qualifiers: Systemic lupus erythematosus type: other Systemic lupus erythematosus organ involvement: other Qualified Code(s): M32.19 - Other organ or system involvement in systemic lupus erythematosus Disposition: DC-01 TO HOME OR SELFCARE Is pt being admited?: No Does the pt Need Aspirin: No Condition: Stable Instructions: Rheumatoid Arthritis (ED) Prescriptions: Acetaminophen [Acetaminophen TAB] 650 mg PO Q6HR PRN #40 tablet PRN Reason: Pain methylPREDNISolone [Medrol Dose Miguelangel] 4 mg PO DAILY #1 tab.ds.pk Neomycn/Baci Zn/Pmyx Bs/Pramox [Triple Antibioti-Pain Rlf Oint] 1 applic TP TID #1 tube Oxycodone HCl/Acetaminophen [Percocet 7.5/325 mg] 1 each PO Q6HR PRN #12 tablet PRN Reason: Pain Referrals: PRIMARY CAREMD [Primary Care Provider] - 3-5 Days KEEGAN KEMP MD [Referring] - 3-5 Days Forms: Work/School Release Form(ED) Time of Disposition: 05:49
== END 2017-03-02 06:29 | disposition home or self-care (01) ==
LOC: ED 01:51
DX: M32.19 Other organ or system involvement in systemic lupus erythematosus (principal); I10 Essential (primary) hypertension; M19.90 Unspecified osteoarthritis, unspecified site; F41.9 Anxiety disorder, unspecified
CPT/HCPCS: 96372; 99283; J2930; A6250

== ENCOUNTER 2017-03-09 04:16 | Emergency (ER) | payer MEDICAID ==
[2017-03-09 04:42] VITALS: BP 158/97
--- NOTE | 2017-03-09 08:32 | Emergency Department Report ---
ED ENT HPI - General Chief complaint: Pain General Stated complaint: BODY PAIN Time Seen by Provider: 03/09/17 07:21 Source: patient Mode of arrival: Ambulatory Limitations: No Limitations - Related Data Home Medications Medication Instructions Recorded Confirmed Last Taken Lisinopril/Hydrochlorothiazide 1 tab PO QDAY 03/26/13 03/09/17 1 Day Ago [Zestoretic 20-12.5 mg] clonazePAM [Clonazepam] 2 mg PO 4XD 05/01/14 03/09/17 1 Day Ago Glimepiride [Amaryl] 4 mg PO QAM 03/09/17 03/09/17 1 Day Ago Previous Rx's Medication Instructions Recorded Last Taken Type oxyCODONE /ACETAMINOPHEN [Percocet 1 tab PO BID PRN #12 tablet 01/19/17 1 Day Ago Rx 5/325 mg] Oxycodone HCl/Acetaminophen 1 each PO Q6HR PRN #12 tablet 03/02/17 1 Day Ago Rx [Percocet 7.5/325 mg] Acetaminophen/Codeine [Tylenol 1 tab PO Q6H PRN #15 tab 03/09/17 Unknown Rx /Codeine # 3 tab] Clindamycin [Clindamycin CAP] 300 mg PO Q6HR #56 capsule 03/09/17 Unknown Rx Allergies Allergy/AdvReac Type Severity Reaction Status Date / Time ibuprofen [From Motrin] Allergy Rash Verified 03/01/15 12:46 ketorolac tromethamine Allergy Rash Verified 03/01/15 12:46 [From Toradol] morphine Allergy Rash Verified 11/30/16 03:23 NSAIDS (Non-Steroidal Allergy Rash Verified 03/01/15 12:46 Anti-Inflamma Penicillins Allergy Rash Verified 06/06/16 20:55 tramadol HCl [From Ultram] Allergy Rash Verified 03/01/15 12:46 ED Dental HPI - General Chief complaint: Pain General Stated complaint: BODY PAIN Time Seen by Provider: 03/09/17 07:21 Source: patient Mode of arrival: Ambulatory Limitations: No Limitations - Related Data Home Medications Medication Instructions Recorded Confirmed Last Taken Lisinopril/Hydrochlorothiazide 1 tab PO QDAY 03/26/13 03/09/17 1 Day Ago [Zestoretic 20-12.5 mg] clonazePAM [Clonazepam] 2 mg PO 4XD 05/01/14 03/09/17 1 Day Ago Glimepiride [Amaryl] 4 mg PO QAM 03/09/17 03/09/17 1 Day Ago Previous Rx's Medication Instructions Recorded Last Taken Type oxyCODONE /ACETAMINOPHEN [Percocet 1 tab PO BID PRN #12 tablet 01/19/17 1 Day Ago Rx 5/325 mg] Oxycodone HCl/Acetaminophen 1 each PO Q6HR PRN #12 tablet 03/02/17 1 Day Ago Rx [Percocet 7.5/325 mg] Acetaminophen/Codeine [Tylenol 1 tab PO Q6H PRN #15 tab 03/09/17 Unknown Rx /Codeine # 3 tab] Clindamycin [Clindamycin CAP] 300 mg PO Q6HR #56 capsule 03/09/17 Unknown Rx Allergies Allergy/AdvReac Type Severity Reaction Status Date / Time ibuprofen [From Motrin] Allergy Rash Verified 03/01/15 12:46 ketorolac tromethamine Allergy Rash Verified 03/01/15 12:46 [From Toradol] morphine Allergy Rash Verified 11/30/16 03:23 NSAIDS (Non-Steroidal Allergy Rash Verified 03/01/15 12:46 Anti-Inflamma Penicillins Allergy Rash Verified 06/06/16 20:55 tramadol HCl [From Ultram] Allergy Rash Verified 03/01/15 12:46 ED Review of Systems ROS: Stated complaint: BODY PAIN Other details as noted in HPI ED Past Medical Hx - Past Medical History Previous Medical History?: Yes Hx Hypertension: Yes Hx Arthritis: Yes Hx Psychiatric Treatment: Yes (anxiety) Additional medical history: back problems / fibromyalgia. LUPUS. pud - Surgical History Past Surgical History?: Yes Hx Appendectomy: No Additional Surgical History: c section x1 - Social History Smoking Status: Never Smoker Substance Use Type: None - Medications Home Medications: Home Medications Medication Instructions Recorded Confirmed Last Taken Type Lisinopril/Hydrochlorothiazide 1 tab PO QDAY 03/26/13 03/09/17 1 Day Ago History [Zestoretic 20-12.5 mg] clonazePAM [Clonazepam] 2 mg PO 4XD 05/01/14 03/09/17 1 Day Ago History oxyCODONE /ACETAMINOPHEN [Percocet 1 tab PO BID PRN #12 tablet 01/19/17 1 Day Ago Rx 5/325 mg] Oxycodone HCl/Acetaminophen 1 each PO Q6HR PRN #12 tablet 03/02/17 03/09/17 1 Day Ago Rx [Percocet 7.5/325 mg] Acetaminophen/Codeine [Tylenol 1 tab PO Q6H PRN #15 tab 03/09/17 Unknown Rx /Codeine # 3 tab] Clindamycin [Clindamycin CAP] 300 mg PO Q6HR #56 capsule 03/09/17 Unknown Rx Glimepiride [Amaryl] 4 mg PO QAM 03/09/17 03/09/17 1 Day Ago History ED Physical Exam - General Limitations: No Limitations ED Course Vital Signs 03/09/17 04:37 Temperature 98.2 F Pulse Rate 79 Respiratory 20 Rate Blood Pressure 158/97 [Right] O2 Sat by Pulse 100 Oximetry Critical care attestation.: If time is entered above; I have spent that time in minutes in the direct care of this critically ill patient, excluding procedure time. ED Disposition Clinical Impression: Dental caries, Pain, dental Disposition: DC-01 TO HOME OR SELFCARE Is pt being admited?: No Does the pt Need Aspirin: No Condition: Good Instructions: Dental Caries (ED) Additional Instructions: take penicillin as prescribes. tale tylenol with codeine every 6 hours as needed for pain. do not drive or use heavy machinery when taking tylenol with codeine. Follow up with the provided dental clinics. Prescriptions: Acetaminophen/Codeine [Tylenol /Codeine # 3 tab] 1 tab PO Q6H PRN #15 tab PRN Reason: Pain Clindamycin [Clindamycin CAP] 300 mg PO Q6HR #56 capsule Referrals: PRIMARY CARE, [Primary Care Provider] - 3-5 Days [facility] [Outside] - 3-5 Days [facility] [Outside] - 3-5 Days Time of Disposition: 08:32
--- NOTE | 2017-03-09 08:48 | Emergency Department Report ---
<NORMAN GHOSH N - Last Filed: 03/09/17 08:42> ED General Adult HPI - General Chief complaint: Pain General Stated complaint: BODY PAIN Time Seen by Provider: 03/09/17 07:21 Source: patient Mode of arrival: Ambulatory Limitations: No Limitations - History of Present Illness Initial comments: Patient is a 52-year-old female with history of lupus who presents due to multiple joint and extremity pain 3 days. Patient states that she also has a rash on her right forearm and upper back. Patient states that she gets rash when she has a lupus flare. Patient says that she's not able to see her primary care physician until March 25. Patient was seen here 7 days ago for similar symptoms. Patient denies any fever or chills. Patient is denies any abdominal pain, nausea, vomiting or diarrhea. Patient has any dysuria, hematuria frequency.. MD Complaint: lupus flare Onset/Timin -: days(s) Location: back, upper extremity, lower extremity Radiation: non-radiation Severity scale (0 -10): 4 Quality: aching Consistency: constant Improves with: none, medication Worsens with: none Associated Symptoms: rash Treatments Prior to Arrival: none - Related Data Home Medications Medication Instructions Recorded Confirmed Last Taken Lisinopril/Hydrochlorothiazide 1 tab PO QDAY 03/26/13 03/09/17 1 Day Ago [Zestoretic 20-12.5 mg] clonazePAM [Clonazepam] 2 mg PO 4XD 05/01/14 03/09/17 1 Day Ago Glimepiride [Amaryl] 4 mg PO QAM 03/09/17 03/09/17 1 Day Ago Previous Rx's Medication Instructions Recorded Last Taken Type oxyCODONE /ACETAMINOPHEN [Percocet 1 tab PO BID PRN #12 tablet 01/19/17 1 Day Ago Rx 5/325 mg] Oxycodone HCl/Acetaminophen 1 each PO Q6HR PRN #12 tablet 03/02/17 1 Day Ago Rx [Percocet 7.5/325 mg] HYDROcodone/APAP 5-325 [Fowler 1 each PO Q6HR PRN #8 tablet 03/09/17 Unknown Rx 5/325] Prednisone [predniSONE 10 mg 10 mg PO .TAPER #1 tab.ds.pk 03/09/17 Unknown Rx (6-Day Pack, 21 Tabs)] Triamcinolone 0.1% [Kenalog 0.1% 1 applic TP TID #1 tube 03/09/17 Unknown Rx CREAM] Allergies Allergy/AdvReac Type Severity Reaction Status Date / Time ibuprofen [From Motrin] Allergy Rash Verified 03/01/15 12:46 ketorolac tromethamine Allergy Rash Verified 03/01/15 12:46 [From Toradol] morphine Allergy Rash Verified 11/30/16 03:23 NSAIDS (Non-Steroidal Allergy Rash Verified 03/01/15 12:46 Anti-Inflamma Penicillins Allergy Rash Verified 06/06/16 20:55 tramadol HCl [From Ultram] Allergy Rash Verified 03/01/15 12:46 ED Review of Systems ROS: Stated complaint: BODY PAIN Other details as noted in HPI Comment: All other systems reviewed and negative Constitutional: no symptoms reported. denies: chills, fever Respiratory: no symptoms reported. denies: shortness of breath, SOB with exertion, SOB at rest, stridor Cardiovascular: denies: chest pain, palpitations Gastrointestinal: denies: abdominal pain, nausea, vomiting Genitourinary: denies: dysuria, frequency, hematuria Musculoskeletal: arthralgia Skin: rash Neurological: denies: headache ED Past Medical Hx - Past Medical History Previous Medical History?: Yes Hx Hypertension: Yes Hx Arthritis: Yes Hx Psychiatric Treatment: Yes (anxiety) Additional medical history: back problems / fibromyalgia. LUPUS. pud - Surgical History Past Surgical History?: Yes Hx Appendectomy: No Additional Surgical History: c section x1 - Social History Smoking Status: Never Smoker Substance Use Type: None - Medications Home Medications: Home Medications Medication Instructions Recorded Confirmed Last Taken Type Lisinopril/Hydrochlorothiazide 1 tab PO QDAY 03/26/13 03/09/17 1 Day Ago History [Zestoretic 20-12.5 mg] clonazePAM [Clonazepam] 2 mg PO 4XD 05/01/14 03/09/17 1 Day Ago History oxyCODONE /ACETAMINOPHEN [Percocet 1 tab PO BID PRN #12 tablet 01/19/17 1 Day Ago Rx 5/325 mg] Oxycodone HCl/Acetaminophen 1 each PO Q6HR PRN #12 tablet 03/02/17 03/09/17 1 Day Ago Rx [Percocet 7.5/325 mg] Glimepiride [Amaryl] 4 mg PO QAM 03/09/17 03/09/17 1 Day Ago History HYDROcodone/APAP 5-325 [Fowler 1 each PO Q6HR PRN #8 tablet 03/09/17 Unknown Rx 5/325] Prednisone [predniSONE 10 mg 10 mg PO .TAPER #1 tab.ds.pk 03/09/17 Unknown Rx (6-Day Pack, 21 Tabs)] Triamcinolone 0.1% [Kenalog 0.1% 1 applic TP TID #1 tube 03/09/17 Unknown Rx CREAM] ED Physical Exam - General Limitations: No Limitations General appearance: alert, in no apparent distress - Head Head exam: Present: atraumatic, normocephalic, normal inspection - Eye Eye exam: Present: normal appearance - Neck Neck exam: Present: normal inspection. Absent: tenderness - GI/Abdominal GI/Abdominal exam: Present: soft. Absent: tenderness - Extremities Exam Extremities exam: Present: tenderness (patient had tenderness in her bilateral lower extremities) - Neurological Exam Neurological exam: Present: alert, oriented X3, normal gait - Skin Skin exam: Present: dry, rash (Chin has scaly rash on her right forearm and upper back.) ED Course Vital Signs 03/09/17 04:37 Temperature 98.2 F Pulse Rate 79 Respiratory 20 Rate Blood Pressure 158/97 [Right] O2 Sat by Pulse 100 Oximetry ED Medical Decision Making - Medical Decision Making Patient was no acute distress, patient's vital signs were within normal limits. Patient was given a prescription for prednisone tapering dose, Fowler 8 tablets. Patient was just seen here 7 days ago and was prescribed Percocet for similar symptoms. Patient was informed that she needed to see her primary care doctor for her pain management, she was informed that chronic pain management is not managed in the ER. Patient requested to see a physician instead after she was informed that Percocets will not be prescribed. Dr. Grimes saw patient and agreed to prescribe patient Fowler 8 tablets. Patient was told that she will be given Percocet in the ER and will be discharged with redness and tapering dose. Patient was so that she didn't have tramadol at Tylenol with codeine. Patient did not want Tylenol codeine a tramadol and requested Percocets are not goes. Patient was told to follow-up with her primary care provider for proper management of her lupus. - Differential Diagnosis systemic lupus dermatosis flare, rheumatoid arthritis, eczema Critical care attestation.: If time is entered above; I have spent that time in minutes in the direct care of this critically ill patient, excluding procedure time. ED Disposition Disposition: DC-01 TO HOME OR SELFCARE Is pt being admited?: No Does the pt Need Aspirin: No Condition: Good Instructions: [facility] (ED) Additional Instructions: take penicillin as prescribes. tale tylenol with codeine every 6 hours as needed for pain. do not drive or use heavy machinery when taking tylenol with codeine. Follow up with the provided dental clinics. Prescriptions: HYDROcodone/APAP 5-325 [Fowler 5/325] 1 each PO Q6HR PRN #8 tablet PRN Reason: Pain Prednisone [predniSONE 10 mg (6-Day Pack, 21 Tabs)] 10 mg PO .TAPER #1 tab.ds.pk Triamcinolone 0.1% [Kenalog 0.1% CREAM] 1 applic TP TID #1 tube Referrals: [facility] [Outside] - 3-5 Days [facility] [Outside] - 3-5 Days PRIMARY CARE, [Primary Care Provider] - 3-5 Days Time of Disposition: 08:45 <KENY GRIMES - Last Filed: 03/09/17 11:07> ED Medical Decision Making - Medical Decision Making The patient demanded to see the physician as she was upset that she was not getting narcotic pain medication that she found to be appropriate. There is no denying that the patient has a condition that can cause discomfort along with multiple other problems. However the patient does appear to have some drug- seeking behavior. I pulled her [place] prescription monitoring file and the patient has filled Percocet multiple times over the past 2-3 months and each time it appears to be from a different facility and a different doctor. The patient cornered me in the hallway so I went to sit down with her in her room and discuss her concerns. The patient says that she sometimes will go a long time without any lupus flareups but lately it has been a "bad year" and the patient says that the tramadol offered will not control her pain. The patient had previously told the PA that only Percocet works but then tells me that she denies saying this and that she has taken hydrocodone in the past. Her allergy list includes NSAIDs, morphine. I spent a long time talking with the patient regarding the fact that her primary care physician and bead filler should be the ones managing her lupus and that includes pain management. I reviewed the patient's chart and she does not appear to require admission. I went ahead and agreed to give the patient 8 hydrocodone pills which I feel is appropriate amount to get her the time and pain control to get in and see either her PCP or her bead filler who should then take the responsibility to treat her pain however they see fit.
== END 2017-03-09 08:52 | disposition home or self-care (01) ==
LOC: ED 04:16
DX: M79.1 Myalgia (principal); M19.90 Unspecified osteoarthritis, unspecified site; I10 Essential (primary) hypertension; F41.9 Anxiety disorder, unspecified; L93.0 Discoid lupus erythematosus; Z88.0 Allergy status to penicillin; Z88.6 Allergy status to analgesic agent; Z88.8 Allergy status to other drugs, medicaments and biological substances
CPT/HCPCS: 99282